=== PATIENT | female | born 1975 | race African-American/Black ===

== ENCOUNTER 2018-12-07 12:14 | Emergency (ER) | payer OTHER ==
[~2018-12-07] VITALS: Ht 157.5 cm; Wt 77.1 kg
[2018-12-07] MEDS ORDERED: LITHIUM CARBON600 MG PO (12:46)
[2018-12-07] MEDS ORDERED: XANAX1 MG PO (12:48)
[2018-12-07] MEDS ORDERED: NEURONTIN600 MG PO (12:48)
[2018-12-07 13:39] VITALS: BP 128/79
== END 2018-12-07 13:40 | disposition home or self-care (01) ==
LOC: ER 12:14
DX: L29.9 Pruritus, unspecified (principal); F22 Delusional disorders; B88.9 Infestation, unspecified; F17.200 Nicotine dependence, unspecified, uncomplicated